=== PATIENT | male | born 1945 | race Caucasian/White ===

== ENCOUNTER 2018-07-04 14:36 | Day surgery (SDC) | payer MEDICARE, OTHER ==
[~2018-07-04] VITALS: Ht 180.3 cm; Wt 70.0 kg
[~2018-07-04 14:36] MED LIST: ALBU90OI INH; ASCO500; ASPI325 PO; ASPI325EC PO; BENZ100A PO; CARV3.125; CYAN500; FISH1000; FLUO10; FLUO10 PO; FOLI1; FOLI1 PO; Ferrous Sulfat325 M2 PO; LEVO750 PO; LISI20 PO; Lovastatin20 MG PO; METF500; MIRT15 PO; NIAC250ER; NIACIN500 MG PO; Nitrostat0.4 MG SL; OMEP10ER; Percocet 7.5-31 EACH PO; Prilosec Otc20 MG PO; Saw Palmetto160 MG PO; Saw Palmetto80 MG; VITAMIN B-121000 MCG PO; VITAMIN D35000 UNIT PO; ZESTORETIC 20-121 EA
== END 2018-07-04 17:02 | disposition home or self-care (01) ==
LOC: ORSCSDS 14:36
PROVIDERS: Ophthalmology
PROC: 08RJ3JZ Replacement of Right Lens with Synthetic Substitute, Percutaneous Approach (ICD-10-PCS; principal; 2018-07-04 16:30)
DX: H25.11 Age-related nuclear cataract, right eye (principal); I10 Essential (primary) hypertension; E11.9 Type 2 diabetes mellitus without complications; I25.2 Old myocardial infarction; Z79.82 Long term (current) use of aspirin; Z79.899 Other long term (current) drug therapy; F17.210 Nicotine dependence, cigarettes, uncomplicated
CPT/HCPCS: 82947; J2001; J2250; J3010; J7120; V2632

== ENCOUNTER 2018-09-12 10:41 | Day surgery (SDC) | payer MEDICARE, OTHER ==
[~2018-09-12] VITALS: Ht 215.9 cm; Wt 69.0 kg
--- NOTE | 2018-09-12 12:02 | NUR ---
09/12/18 1202 July Mann PT STATES PREVIOUS ALLERGY TO IBUPROFEN. PT UNAWARE OF REACTION. OK TO GIVE LIDOCAINE SLURRY PER DR OLIVARES
== END 2018-09-12 13:00 | disposition home or self-care (01) ==
LOC: ORSCSDS 10:41
PROVIDERS: Ophthalmology
PROC: 08RK3JZ Replacement of Left Lens with Synthetic Substitute, Percutaneous Approach (ICD-10-PCS; principal; 2018-09-12 12:30)
DX: H25.12 Age-related nuclear cataract, left eye (principal); I10 Essential (primary) hypertension; E11.9 Type 2 diabetes mellitus without complications; I25.2 Old myocardial infarction; Z79.82 Long term (current) use of aspirin; Z79.899 Other long term (current) drug therapy
CPT/HCPCS: 82947; J2250; J3010; V2632

== ENCOUNTER → 2019-04-06 | Outpatient (CLI) | payer MEDICARE, OTHER | END | disposition home or self-care (01) | LOC: LAB SHORT 13:51 → LAB EV 13:51 | DX: J02.9 Acute pharyngitis, unspecified (principal) | CPT/HCPCS: 87081 ==

== ENCOUNTER 2020-04-08 09:44 | Inpatient (IN) | payer MEDICARE, OTHER ==
[~2020-04-08] VITALS: Ht 177.8 cm; Wt 73.9 kg
[~2020-04-08 09:44] MED LIST changes: +FERSU300 PO; -Ferrous Sulfat325 M2 PO; +VITAMIN D31000 UNI1 PO; -VITAMIN D35000 UNIT PO
[2020-04-08] MEDS ORDERED: TIOT18 INH (10:12)
[2020-04-08] MEDS ORDERED: REMERON30 MG PO (10:13)
[2020-04-08 10:18] LABS: BASOPHILS ABSOLUTE AUTO 0.04 K/mm3 (0.00-0.23); BASOPHILS PERCENT AUTO 0 % (0-2); EOSINOPHILS PERCENT AUTO 0 % (0-6); Hematocrit 38.3 % (37.0-53.0); IMMATURE GRAN ABSOLUTE AUTO 0.12 K/mm3 (0.00-0.10); IMMATURE GRAN PERCENT AUTO 1 % (0-1); LYMPHOCYTES PERCENT AUTO 4 % (21-46); MONOCYTES ABSOLUTE AUTO 1.01 K/mm3 (0.16-1.47); MONOCYTES PERCENT AUTO 6 % (4-13); Mean Corpuscular HGB 32.3 pg (26.0-34.0); Mean Corpuscular HGB Conc 33.9 g/dL (31.5-36.5); Mean Corpuscular Volume 95 fL (80-100); Mean Platelet Volume 10.4 fL (9.1-12.4); NEUTROPHILS ABSOLUTE AUTO 16.58 K/mm3 (1.96-9.15); NEUTROPHILS PERCENT AUTO 90 % (41-73); Platelet Count 300 K/mm3 (150-400); RDW Coefficient Variation 13.5 % (11.7-14.2); RDW Standard Deviation 47.5 fL (35.1-46.3); Red Blood Cell Count 4.03 M/mm3 (4.30-5.90); White Blood Cell Count 18.45 K/mm3 (4.00-11.30)
[2020-04-08 10:37] LABS: Alanine Aminotransfer (ALT/SGP 26 U/L (12-78); Albumin, Blood 2.2 g/dL (3.4-5.0); Albumin/Globulin Ratio 0.4 (0.8-1.8); Alk Phos 80 U/L (50-136); Anion Gap 10 mmol/L (6-16); Aspartate Aminotrans (AST/SGOT 39 U/L (12-37); Bilirubin, Total 0.5 mg/dL (0.1-1.0); Blood Urea Nitrogen 20 mg/dL (8-24); Bun/Creatinine Ratio 24.6 (12.0-20.0); CO2, Blood 25 mmol/L (21-32); Calcium, Blood 9.7 mg/dL (8.5-10.1); Chloride, Blood 103 mmol/L (98-108); Creatinine, Blood 0.81 mg/dL (0.60-1.20); Globulin, Blood 4.9 g/dL (2.2-4.0); Glomerular Filtration Rate >60 (60-); Glucose, Blood 118 mg/dL (70-99); Potassium, Blood 3.5 mmol/L (3.5-5.5); Sodium, Blood 138 mmol/L (136-145); Total Protein, Blood 7.1 g/dL (6.4-8.2); Troponin I <0.015 ng/mL (0.000-0.040)
[2020-04-08] MEDS ORDERED: Saw Palmetto160 MG PO (16:29)
[2020-04-08] MEDS ORDERED: NIAC500 PO (16:30)
--- NOTE | 2020-04-08 19:28 | NUR ---
SHIFT SUMMARY: PATIENT ADMIT FROM ED THIS SHIFT. PT A&O; [place]; CALM AND COOPERATIVE WITH CARE. TELE IN PLACE; SR @ 72 PER ALLERGIST/PEDIATRIC PULMONOLOGIST. MEDICATED FOR CHRONIC BACK PAIN PER EMAR. LACTIC 1.5; NS @ 125. O2 @ 2L; ROOM AIR @ HOME. FLUIDS CONTINUING. REPORT GIVEN TO ONCOMING RN.
[2020-04-09 05:14] LABS: BASOPHILS ABSOLUTE AUTO 0.04 K/mm3 (0.00-0.23); BASOPHILS PERCENT AUTO 0 % (0-2); EOSINOPHILS ABSOLUTE AUTO 0.02 K/mm3 (0.00-0.68); EOSINOPHILS PERCENT AUTO 0 % (0-6); Hematocrit 38.4 % (37.0-53.0); Hemoglobin 12.6 g/dL (13.5-17.5); IMMATURE GRAN ABSOLUTE AUTO 0.13 K/mm3 (0.00-0.10); IMMATURE GRAN PERCENT AUTO 1 % (0-1); LYMPHOCYTES ABSOLUTE AUTO 2.23 K/mm3 (0.84-5.20); LYMPHOCYTES PERCENT AUTO 14 % (21-46); MONOCYTES ABSOLUTE AUTO 1.01 K/mm3 (0.16-1.47); MONOCYTES PERCENT AUTO 6 % (4-13); Mean Corpuscular HGB 31.7 pg (26.0-34.0); Mean Corpuscular HGB Conc 32.8 g/dL (31.5-36.5); Mean Corpuscular Volume 97 fL (80-100); Mean Platelet Volume 10.6 fL (9.1-12.4); NEUTROPHILS ABSOLUTE AUTO 12.82 K/mm3 (1.96-9.15); NEUTROPHILS PERCENT AUTO 79 % (41-73); Platelet Count 316 K/mm3 (150-400); RDW Coefficient Variation 13.9 % (11.7-14.2); RDW Standard Deviation 49.9 fL (35.1-46.3); Red Blood Cell Count 3.97 M/mm3 (4.30-5.90); White Blood Cell Count 16.25 K/mm3 (4.00-11.30)
--- NOTE | 2020-04-09 05:23 | NUR ---
SHIFT SUMMARY: 75 Y/O MALE RESTED COMFORTABLY ALL SHIFT; DENIES PAIN OR NAUSEA; WEARING O2 AT 2L/M PER NASAL CANNULA; COUGHING UP GREEN/YELLOW PHELGM AT TIMES WITH SLIGHT DYSPNEA NOTED SLIGHT MOVEMENT; PT VOIDED X 1 THIS SHIFT AFTER THIS NURSE ENCOURAGED PT TO AMBULATE INTO BATHROOM WHILE WEARING O2 (PT CONTINENT); ALERT AND ORIENTED X 4, BED LOW POSITION WITH CALL LIGHT AT SIDE.
[2020-04-09 05:38] LABS: Alanine Aminotransfer (ALT/SGP 30 U/L (12-78); Albumin, Blood 2.1 g/dL (3.4-5.0); Albumin/Globulin Ratio 0.4 (0.8-1.8); Alk Phos 75 U/L (50-136); Anion Gap 8 mmol/L (6-16); Aspartate Aminotrans (AST/SGOT 51 U/L (12-37); Bilirubin, Total 0.4 mg/dL (0.1-1.0); Blood Urea Nitrogen 15 mg/dL (8-24); Bun/Creatinine Ratio 17.9 (12.0-20.0); CO2, Blood 28 mmol/L (21-32); Calcium, Blood 9.1 mg/dL (8.5-10.1); Chloride, Blood 104 mmol/L (98-108); Creatinine, Blood 0.84 mg/dL (0.60-1.20); Globulin, Blood 4.8 g/dL (2.2-4.0); Glomerular Filtration Rate >60 (60-); Glucose, Blood 85 mg/dL (70-99); Potassium, Blood 2.9 mmol/L (3.5-5.5); Sodium, Blood 140 mmol/L (136-145); Total Protein, Blood 6.9 g/dL (6.4-8.2)
--- NOTE | 2020-04-09 19:27 | NUR ---
SHIFT SUMMARY: NO ACUTE CHANGES TO REPORT THIS SHIFT. PT A&O; [place]; CALM AND COOPERATIVE WITH CARE. MEDICATED FOR CHRONIC BACK PAIN PER EMAR. TELE IN PLACE; SR @ 72 PER PETROLOGY TEACHER. IV ABX & REHYDRATION . REPORT GIVEN TO ONCOMING RN.
--- NOTE | 2020-04-10 04:40 | NUR ---
SHIFT SUMMARY: 75 Y/O MALE RESTED COMFORTABLY ALL SHIFT; DENIES PAIN OR NAUSEA; ALERT AND ORIENTED X 4; TELEMETRY REFLECTS NSR PER ADRIAN--LOGGING RAFTER LABORER; PT WEARING O2 AT 2L/M PER NASAL CANNULA; LUNGS SOUNDS ARE DIMINISHED THROUGHOUT; BED LOW POSITION WITH CALL LIGHT AT SIDE.
[2020-04-10 05:14] LABS: BASOPHILS ABSOLUTE AUTO 0.03 K/mm3 (0.00-0.23); BASOPHILS PERCENT AUTO 0 % (0-2); EOSINOPHILS ABSOLUTE AUTO 0.04 K/mm3 (0.00-0.68); EOSINOPHILS PERCENT AUTO 0 % (0-6); Hematocrit 32.1 % (37.0-53.0); Hemoglobin 10.8 g/dL (13.5-17.5); IMMATURE GRAN ABSOLUTE AUTO 0.09 K/mm3 (0.00-0.10); IMMATURE GRAN PERCENT AUTO 1 % (0-1); LYMPHOCYTES ABSOLUTE AUTO 1.06 K/mm3 (0.84-5.20); LYMPHOCYTES PERCENT AUTO 8 % (21-46); MONOCYTES PERCENT AUTO 5 % (4-13); Mean Corpuscular HGB Conc 33.6 g/dL (31.5-36.5); Mean Corpuscular Volume 95 fL (80-100); Mean Platelet Volume 10.3 fL (9.1-12.4); NEUTROPHILS ABSOLUTE AUTO 11.57 K/mm3 (1.96-9.15); NEUTROPHILS PERCENT AUTO 86 % (41-73); Platelet Count 298 K/mm3 (150-400); RDW Coefficient Variation 13.9 % (11.7-14.2); RDW Standard Deviation 48.4 fL (35.1-46.3); Red Blood Cell Count 3.37 M/mm3 (4.30-5.90); White Blood Cell Count 13.49 K/mm3 (4.00-11.30)
[2020-04-10 05:35] LABS: Anion Gap 8 mmol/L (6-16); Blood Urea Nitrogen 10 mg/dL (8-24); Bun/Creatinine Ratio 14.8 (12.0-20.0); CO2, Blood 27 mmol/L (21-32); Calcium, Blood 8.5 mg/dL (8.5-10.1); Chloride, Blood 105 mmol/L (98-108); Creatinine, Blood 0.68 mg/dL (0.60-1.20); Glomerular Filtration Rate >60 (60-); Glucose, Blood 92 mg/dL (70-99); Potassium, Blood 2.8 mmol/L (3.5-5.5); Sodium, Blood 140 mmol/L (136-145)
--- NOTE | 2020-04-10 17:39 | NUR ---
SHIFT SUMMARY NO ACUTE CHANGES T/O SHIFT, PT A&Ox4. K+ WAS 2.8 WHEN I STARTED MY SHIFT, CALLED AND HE PLACED AN ORDER FOR ORAL POTASSIUM TO BE STARTED. SPUTUM SAMPLE WAS COLLECTED AND SENT TO LAB. PT HAS BEEN CALM AND COOPERATIVE WITH CARE. PT IS CURRENTLY SITTING UP IN BED EATING DINNER. POSSIBLE DC TOMORROW.
[2020-04-10 18:17] LABS: Anion Gap 6 mmol/L (6-16); Blood Urea Nitrogen 8 mg/dL (8-24); CO2, Blood 29 mmol/L (21-32); Calcium, Blood 8.4 mg/dL (8.5-10.1); Chloride, Blood 108 mmol/L (98-108); Creatinine, Blood 0.73 mg/dL (0.60-1.20); Glomerular Filtration Rate >60 (60-); Glucose, Blood 96 mg/dL (70-99); Potassium, Blood 3.4 mmol/L (3.5-5.5); Sodium, Blood 143 mmol/L (136-145)
--- NOTE | 2020-04-11 04:07 | NUR ---
SHIFT SUMMARY: 75 Y/O MALE RESTED COMFORTABLY ALL SHIFT; C/O BACK PAIN RATED 8/10 AND MEDICATED WITH PERCOCET X 1 WITH GOOD RELIEF FELT; WEARING O2 AT 2L/M PER NASAL CANNULA; PT COUGHING UP YELLOW PHELGM AT TIMES WHILE SITTING HIGH FOWLERS FOR COMFORT; DENIES NAUSEA THIS SHIFT; BED LOW POSITION WITH CALL LIGHT AT SIDE; TELEMETRY REFLECTS NSR WITH PVC PER ADRIAN--MANAGER UROLOGY.
[2020-04-11 05:07] LABS: BASOPHILS ABSOLUTE AUTO 0.04 K/mm3 (0.00-0.23); BASOPHILS PERCENT AUTO 0 % (0-2); EOSINOPHILS ABSOLUTE AUTO 0.09 K/mm3 (0.00-0.68); EOSINOPHILS PERCENT AUTO 1 % (0-6); Hematocrit 30.7 % (37.0-53.0); IMMATURE GRAN ABSOLUTE AUTO 0.08 K/mm3 (0.00-0.10); IMMATURE GRAN PERCENT AUTO 1 % (0-1); LYMPHOCYTES ABSOLUTE AUTO 1.15 K/mm3 (0.84-5.20); LYMPHOCYTES PERCENT AUTO 10 % (21-46); MONOCYTES ABSOLUTE AUTO 0.71 K/mm3 (0.16-1.47); MONOCYTES PERCENT AUTO 6 % (4-13); Mean Corpuscular HGB 31.5 pg (26.0-34.0); Mean Corpuscular HGB Conc 32.6 g/dL (31.5-36.5); Mean Corpuscular Volume 97 fL (80-100); Mean Platelet Volume 10.2 fL (9.1-12.4); NEUTROPHILS ABSOLUTE AUTO 9.23 K/mm3 (1.96-9.15); NEUTROPHILS PERCENT AUTO 82 % (41-73); Platelet Count 310 K/mm3 (150-400); RDW Coefficient Variation 13.9 % (11.7-14.2); RDW Standard Deviation 49.5 fL (35.1-46.3); Red Blood Cell Count 3.17 M/mm3 (4.30-5.90)
[2020-04-11 05:40] LABS: Anion Gap 6 mmol/L (6-16); Blood Urea Nitrogen 7 mg/dL (8-24); Bun/Creatinine Ratio 10.4 (12.0-20.0); CO2, Blood 28 mmol/L (21-32); Calcium, Blood 7.9 mg/dL (8.5-10.1); Chloride, Blood 107 mmol/L (98-108); Creatinine, Blood 0.68 mg/dL (0.60-1.20); Glomerular Filtration Rate >60 (60-); Glucose, Blood 83 mg/dL (70-99); Sodium, Blood 141 mmol/L (136-145)
--- NOTE | 2020-04-11 10:40 | NUR ---
TRIED TITRATING PT OFF OF O2 BECUASE HIS BASELINE IN 2 L/MIN O2 VIA NC AT HOME. PT DROPPED TO 85% W/O O2 AND SUSTAINED THERE. PLACED PT BACK ON 1.5 L/MIN 02 AND PT STAYED AROUND 92%. INFORMED DR BENNETT AND SHE STATED SHE WILL ORDERED A HOME O2 EVAL SINCE PT IS LIKELY TO BE DISCHARGED TODAY.
[2020-04-11] MEDS ORDERED: AMOCLA875 PO (12:45)
[2020-04-11] MEDS ORDERED: [UNRECOGNIZED DRUG - OTHER] PO (12:45)
[2020-04-11 12:53] LABS: Anion Gap 7 mmol/L (6-16); Blood Urea Nitrogen 6 mg/dL (8-24); Bun/Creatinine Ratio 8.7 (12.0-20.0); CO2, Blood 27 mmol/L (21-32); Calcium, Blood 8.2 mg/dL (8.5-10.1); Chloride, Blood 109 mmol/L (98-108); Creatinine, Blood 0.69 mg/dL (0.60-1.20); Glomerular Filtration Rate >60 (60-); Glucose, Blood 110 mg/dL (70-99); Potassium, Blood 3.6 mmol/L (3.5-5.5); Sodium, Blood 143 mmol/L (136-145)
--- NOTE | 2020-04-11 15:22 | NUR ---
PT DISCHARGED AT APPROX 1510 VIA WHEELCHAIR BY DAVIN HEAD RN. BLANCA CAME BY AND PROVIDED PT WITH PORTABLE OXYGEN TANK PER MD ORDER. DISCHARGE INSTRUCTIONS WERE DISCUSSED WITH PT. PT VERBALIZED UNDERSTANDING AND STATED HE HAD NO QUESTIONS OR CONCERNS. IV WAS REMOVED AND SITE APPEARED WITHIN NORMAL LIMITS, TELE WAS ALSO REMOVED AND LOGGING SHOVEL OPERATOR WAS NOTIFIED.
== END 2020-04-11 15:11 | disposition home or self-care (01) | DRG 871 ==
LOC: ER 09:44 → MEDS 13:48
PROVIDERS: Emergency Medicine; Family Medicine; Nurse Practitioner Acute Care; Student in an Organized Health Care Education/Training Program; ADMIT Internal Medicine
DX: A41.9 Sepsis, unspecified organism (principal); J96.01 Acute respiratory failure with hypoxia; J18.9 Pneumonia, unspecified organism; J44.0 Chronic obstructive pulmonary disease with (acute) lower respiratory infection; Z79.82 Long term (current) use of aspirin; I25.10 Atherosclerotic heart disease of native coronary artery without angina pectoris; Z95.5 Presence of coronary angioplasty implant and graft; Z90.2 Acquired absence of lung [part of]; Z87.891 Personal history of nicotine dependence; Z20.828 Contact with and (suspected) exposure to other viral communicable diseases; F32.9 Major depressive disorder, single episode, unspecified; D50.9 Iron deficiency anemia, unspecified; K21.9 Gastro-esophageal reflux disease without esophagitis; E87.6 Hypokalemia; M54.9 Dorsalgia, unspecified; G89.29 Other chronic pain; Z99.81 Dependence on supplemental oxygen
CPT/HCPCS: 36415; 71045; 80048; 80053; 83605; 83735; 83880; 84484; 85025; 87040; 87070; 87077; 87147; 87186; 87205; 93005; 93010; 94640; 94760; 94761; 96365; 96367; 96375; 99285-25; A9270; A9270-GY; J0456; J0696; J0780; J1650; J2405; J7030; J7050; J7060; U0004

== ENCOUNTER → 2020-11-19 | Outpatient (CLI) | payer MEDICARE, OTHER ==
[~2020-11-19] MED LIST changes: +AMOCLA875 PO; +NIAC500 PO; +REMERON30 MG PO; +TIOT18 INH; +[UNRECOGNIZED DRUG - OTHER] PO
[2020-11-19 14:45] LABS: BASOPHILS ABSOLUTE AUTO 0.04 K/mm3 (0.00-0.23); BASOPHILS PERCENT AUTO 1 % (0-2); EOSINOPHILS ABSOLUTE AUTO 0.22 K/mm3 (0.00-0.68); EOSINOPHILS PERCENT AUTO 3 % (0-6); Hematocrit 35.3 % (37.0-53.0); Hemoglobin 10.5 g/dL (13.5-17.5); IMMATURE GRAN ABSOLUTE AUTO 0.03 K/mm3 (0.00-0.10); IMMATURE GRAN PERCENT AUTO 0 % (0-1); LYMPHOCYTES ABSOLUTE AUTO 1.87 K/mm3 (0.84-5.20); LYMPHOCYTES PERCENT AUTO 25 % (21-46); MONOCYTES PERCENT AUTO 10 % (4-13); Mean Corpuscular HGB 25.2 pg (26.0-34.0); Mean Corpuscular HGB Conc 29.7 g/dL (31.5-36.5); Mean Corpuscular Volume 85 fL (80-100); Mean Platelet Volume 10.8 fL (9.1-12.4); NEUTROPHILS ABSOLUTE AUTO 4.52 K/mm3 (1.96-9.15); NEUTROPHILS PERCENT AUTO 61 % (41-73); Platelet Count 237 K/mm3 (150-400); RDW Coefficient Variation 16.6 % (11.7-14.2); Red Blood Cell Count 4.17 M/mm3 (4.30-5.90); White Blood Cell Count 7.38 K/mm3 (4.00-11.30)
[2020-11-19 15:02] LABS: Albumin, Blood 3.2 g/dL (3.4-5.0); Albumin/Globulin Ratio 0.7 (0.8-1.8); Bilirubin, Total 0.2 mg/dL (0.1-1.0); Bun/Creatinine Ratio 9.6 (12.0-20.0); Calcium, Blood 9.1 mg/dL (8.5-10.1); Creatinine, Blood 1.25 mg/dL (0.60-1.20); Globulin, Blood 4.5 g/dL (2.2-4.0); Potassium, Blood 3.5 mmol/L (3.5-5.5); Total Protein, Blood 7.7 g/dL (6.4-8.2)
== END | disposition home or self-care (01) ==
LOC: LAB SHORT 09:45 → LAB 09:45
PROVIDERS: Family Medicine
DX: C15.9 Malignant neoplasm of esophagus, unspecified (principal); E78.5 Hyperlipidemia, unspecified; I10 Essential (primary) hypertension; G89.4 Chronic pain syndrome
CPT/HCPCS: 80053; 85025

== ENCOUNTER → 2021-10-04 | Outpatient (CLI) | payer MEDICARE, OTHER ==
[2021-10-04 18:57] LABS: BASOPHILS ABSOLUTE AUTO 0.07 K/mm3 (0.00-0.23); BASOPHILS PERCENT AUTO 1 % (0-2); EOSINOPHILS PERCENT AUTO 2 % (0-6); Hematocrit 40.8 % (37.0-53.0); Hemoglobin 12.3 g/dL (13.5-17.5); IMMATURE GRAN ABSOLUTE AUTO 0.03 K/mm3 (0.00-0.10); IMMATURE GRAN PERCENT AUTO 0 % (0-1); LYMPHOCYTES ABSOLUTE AUTO 1.96 K/mm3 (0.84-5.20); LYMPHOCYTES PERCENT AUTO 20 % (21-46); MONOCYTES ABSOLUTE AUTO 0.69 K/mm3 (0.16-1.47); MONOCYTES PERCENT AUTO 7 % (4-13); Mean Corpuscular HGB 26.6 pg (26.0-34.0); Mean Corpuscular HGB Conc 30.1 g/dL (31.5-36.5); Mean Corpuscular Volume 88 fL (80-100); Mean Platelet Volume 10.8 fL (9.1-12.4); NEUTROPHILS ABSOLUTE AUTO 6.74 K/mm3 (1.96-9.15); NEUTROPHILS PERCENT AUTO 70 % (41-73); Platelet Count 238 K/mm3 (150-400); RDW Coefficient Variation 16.8 % (11.7-14.2); RDW Standard Deviation 53.7 fL (35.1-46.3); Red Blood Cell Count 4.63 M/mm3 (4.30-5.90); White Blood Cell Count 9.69 K/mm3 (4.00-11.30)
== END | disposition home or self-care (01) ==
LOC: LAB SHORT 16:00
PROVIDERS: Family Medicine
DX: R06.00 Dyspnea, unspecified (principal)
CPT/HCPCS: 84145; 85025

== ENCOUNTER 2021-12-01 13:03 | Day surgery (SDC) | payer MEDICARE, OTHER ==
[~2021-12-01] VITALS: Ht 177.8 cm; Wt 79.9 kg
== END 2021-12-01 16:06 | disposition home or self-care (01) ==
LOC: ORSCSDS 13:03
PROVIDERS: Student in an Organized Health Care Education/Training Program
PROC: 0DB78ZX Excision of Stomach, Pylorus, Via Natural or Artificial Opening Endoscopic, Diagnostic (ICD-10-PCS; principal; 2021-12-01 15:00)
PROC: 0DB58ZX Excision of Esophagus, Via Natural or Artificial Opening Endoscopic, Diagnostic (ICD-10-PCS; principal; 2021-12-01 15:00)
DX: R13.14 Dysphagia, pharyngoesophageal phase (principal); K21.9 Gastro-esophageal reflux disease without esophagitis; Z85.118 Personal history of other malignant neoplasm of bronchus and lung; Z85.01 Personal history of malignant neoplasm of esophagus; Z99.81 Dependence on supplemental oxygen; Z79.899 Other long term (current) drug therapy; Z79.82 Long term (current) use of aspirin; I10 Essential (primary) hypertension; I25.2 Old myocardial infarction
CPT/HCPCS: 88305; 88312; 88342; A9270; J0171; J0461; J2370; J2405; J2704; J7120

== ENCOUNTER → 2022-01-24 | Outpatient (CLI) | payer MEDICARE, OTHER | LOC: LAB SHORT 17:05 | DX: R53.83 Other fatigue (principal) ==

== ENCOUNTER → 2022-02-02 | Outpatient (CLI) | payer MEDICARE, OTHER ==
[~2022-02-02] MED LIST changes: +K-Dur10 MEQ PO; +NEURONTIN300 MG PO; +NITROGLYCERIN0.4 M3 SL
[2022-02-02 18:50] LABS: BASOPHILS ABSOLUTE AUTO 0.04 K/mm3 (0.00-0.23); BASOPHILS PERCENT AUTO 1 % (0-2); EOSINOPHILS ABSOLUTE AUTO 0.06 K/mm3 (0.00-0.68); EOSINOPHILS PERCENT AUTO 1 % (0-6); Hematocrit 28.1 % (37.0-53.0); Hemoglobin 8.3 g/dL (13.5-17.5); IMMATURE GRAN ABSOLUTE AUTO 0.01 K/mm3 (0.00-0.10); IMMATURE GRAN PERCENT AUTO 0 % (0-1); LYMPHOCYTES ABSOLUTE AUTO 1.22 K/mm3 (0.84-5.20); LYMPHOCYTES PERCENT AUTO 18 % (21-46); MONOCYTES ABSOLUTE AUTO 0.44 K/mm3 (0.16-1.47); MONOCYTES PERCENT AUTO 7 % (4-13); Mean Corpuscular HGB 23.9 pg (26.0-34.0); Mean Corpuscular HGB Conc 29.5 g/dL (31.5-36.5); Mean Corpuscular Volume 81 fL (80-100); Mean Platelet Volume 11.1 fL (9.1-12.4); NEUTROPHILS ABSOLUTE AUTO 4.85 K/mm3 (1.96-9.15); NEUTROPHILS PERCENT AUTO 73 % (41-73); Platelet Count 261 K/mm3 (150-400); RDW Coefficient Variation 18.9 % (11.7-14.2); RDW Standard Deviation 54.6 fL (35.1-46.3); Red Blood Cell Count 3.48 M/mm3 (4.30-5.90); White Blood Cell Count 6.62 K/mm3 (4.00-11.30)
== END | disposition home or self-care (01) ==
LOC: LAB SHORT 15:35
PROVIDERS: Family Medicine
DX: D64.9 Anemia, unspecified (principal)
CPT/HCPCS: 85025

== ENCOUNTER 2022-03-06 14:32 | Inpatient (IN) | payer MEDICARE, OTHER ==
[~2022-03-06] VITALS: Ht 177.8 cm; Wt 72.3 kg
[2022-03-06 14:53] LABS: Base Excess Venous 5.7 mmol/L; Bicarbonate Venous 27.9 mmol/L (24.0-30.0); PCO2 Venous 60.2 mmHg (38-42); pH Blood Venous 7.33 (7.34-7.37)
[2022-03-06 15:00] LABS: BASOPHILS ABSOLUTE AUTO 0.04 K/mm3 (0.00-0.23); BASOPHILS PERCENT AUTO 0 % (0-2); EOSINOPHILS PERCENT AUTO 0 % (0-6); Hematocrit 38.3 % (37.0-53.0); Hemoglobin 11.1 g/dL (13.5-17.5); IMMATURE GRAN ABSOLUTE AUTO 0.04 K/mm3 (0.00-0.10); IMMATURE GRAN PERCENT AUTO 0 % (0-1); LYMPHOCYTES ABSOLUTE AUTO 0.57 K/mm3 (0.84-5.20); LYMPHOCYTES PERCENT AUTO 4 % (21-46); MONOCYTES ABSOLUTE AUTO 1.04 K/mm3 (0.16-1.47); MONOCYTES PERCENT AUTO 7 % (4-13); Mean Corpuscular HGB 25.6 pg (26.0-34.0); Mean Corpuscular Volume 89 fL (80-100); Mean Platelet Volume 10.2 fL (9.1-12.4); NEUTROPHILS ABSOLUTE AUTO 12.46 K/mm3 (1.96-9.15); NEUTROPHILS PERCENT AUTO 88 % (41-73); Platelet Count 272 K/mm3 (150-400); RDW Coefficient Variation 26.8 % (11.7-14.2); Red Blood Cell Count 4.33 M/mm3 (4.30-5.90); White Blood Cell Count 14.15 K/mm3 (4.00-11.30)
[2022-03-06 15:24] LABS: Albumin, Blood 2.9 g/dL (3.4-5.0); Albumin/Globulin Ratio 0.7 (0.8-1.8); Bilirubin, Total 0.3 mg/dL (0.1-1.0); Bun/Creatinine Ratio 16.7 (12.0-20.0); Calcium, Blood 9.1 mg/dL (8.5-10.1); Creatinine, Blood 0.96 mg/dL (0.60-1.20); Globulin, Blood 4.2 g/dL (2.2-4.0); Total Protein, Blood 7.1 g/dL (6.4-8.2)
--- NOTE | 2022-03-06 18:54 | NUR ---
ADMIT PT ARRIVED TO ICU 5 VIA BED AT 1835. PT IS AWAKE, ALERT, AND ORIENTED. PT ANSWERS SIMPLE QUESTIONS APPROPRIATELY AND FOLLOWS DIRECTIONS. PT COMPLAINS OF BACK PAIN AT THIS TIME. DENIES SOB. PT ON 4L O2 NC. PT WITH VERY WET LUNG SOUNDS. IV'S IN PLACE WITH KCL AND AZITHROMYCIN INFUSING. ATTENDS IN PLACE. PT WITH SOME REDDNESS NOTED TO COCCYX. WILL CONTINUE TO MONITOR AND REPORT OFF TO ONCOMING RN.
[2022-03-06] MEDS ORDERED: ALBU8HFA2 INH (19:25)
--- NOTE | 2022-03-06 20:47 | NUR ---
ASSUMED CARE. AOX3, ABLE TO MAKE NEEDS KNOWN. DENIES PAIN OR DISCOMFORT. LS RHONCI T/O, COUGH MOIST, PRODUCTIVE WITH THICK MARCIAL SECRETIONS. ON 3L NC WITH SATS >95%. DENIES CHEST PAIN. SINUS ON MONITOR RATE IN THE 80['S. CRITICAL HIGH TROPONIN OF 1206, CALLED TO DR. CHRISTIANSON, NO NEW ORDERS. BP STABLE. PALE, WARM TO TOUCH, MILD REDNESS TO COCCYX. IS ABLE TO REPOSITION SELF. ADMIT COMPLETED. NEUROPATHY TO BLE FROM PREVIOUS BACK SURGERIES. HUNG ABX, POTASSIUM INFUSING. CALL LIGHT GIVEN.
--- NOTE | 2022-03-06 21:38 | NUR ---
CALLED, UPDATE GIVEN. ASKED TO BE CALLED WITH ANY CHANGES.
[2022-03-07 04:17] LABS: BASOPHILS ABSOLUTE AUTO 0.02 K/mm3 (0.00-0.23); BASOPHILS PERCENT AUTO 0 % (0-2); EOSINOPHILS PERCENT AUTO 0 % (0-6); Hematocrit 32.3 % (37.0-53.0); Hemoglobin 9.4 g/dL (13.5-17.5); IMMATURE GRAN ABSOLUTE AUTO 0.03 K/mm3 (0.00-0.10); IMMATURE GRAN PERCENT AUTO 0 % (0-1); LYMPHOCYTES ABSOLUTE AUTO 0.69 K/mm3 (0.84-5.20); LYMPHOCYTES PERCENT AUTO 5 % (21-46); MONOCYTES PERCENT AUTO 3 % (4-13); Mean Corpuscular HGB 25.4 pg (26.0-34.0); Mean Corpuscular HGB Conc 29.1 g/dL (31.5-36.5); Mean Corpuscular Volume 87 fL (80-100); NEUTROPHILS ABSOLUTE AUTO 12.28 K/mm3 (1.96-9.15); NEUTROPHILS PERCENT AUTO 92 % (41-73); Platelet Count 209 K/mm3 (150-400); RDW Coefficient Variation 26.9 % (11.7-14.2); RDW Standard Deviation 81.8 fL (35.1-46.3); White Blood Cell Count 13.42 K/mm3 (4.00-11.30)
--- NOTE | 2022-03-07 04:50 | NUR ---
PT CONVERTED INTO AFIB WITH RATE IN THE 110'S, C/O DIFFICULTY BREATHING AND NOT ABLE TO CATCH HIS BREATH. RESP INCREASED INTO THE 40'S, BP ELEVATED. HE BECAME DIAPHORTIC. DR. CALL CALLED UPDATE GIVEN. NEW ORDERS OBTAINED. RT CALLED, BREATHING TX STARTED.
[2022-03-07 05:13] LABS: Albumin, Blood 2.5 g/dL (3.4-5.0); Albumin/Globulin Ratio 0.7 (0.8-1.8); Bilirubin, Total 0.4 mg/dL (0.1-1.0); Bun/Creatinine Ratio 19.9 (12.0-20.0); Calcium, Blood 8.2 mg/dL (8.5-10.1); Creatinine, Blood 0.9 mg/dL (0.60-1.20); Globulin, Blood 3.8 g/dL (2.2-4.0); Potassium, Blood 3.1 mmol/L (3.5-5.5); Total Protein, Blood 6.3 g/dL (6.4-8.2)
[2022-03-07 05:27] LABS: Base Excess Venous 6.3 mmol/L; Bicarbonate Venous 28.6 mmol/L (24.0-30.0); PCO2 Venous 59.5 mmHg (38-42); PO2 Venous 58.9 mmHg (38-42); pH Blood Venous 7.34 (7.34-7.37)
--- NOTE | 2022-03-07 07:08 | NUR ---
SHIFT SUMMARY: PT REMAINED ON 4L NC UP TO AROUND 0445 THIS AM WHEN HE WENT INTO RESPIRTORY DISTRESS WITH RESP IN THE 40'S, SATS DROPPING TO 89%, LS WITH AUDIABLE RHONCI, SPUTUM THICK MARCIAL COLOR TO WHERE HE WAS UNABLE TO GET SECRETIONS OUT. PT WAS PLACED ON BIPAP 18/8 WITH FIO2 40%, ATIVAN 0.5MG WAS GIVEN FOR AGGITATION AND ANXIETY WITH BIPAP WHICH DID NOT HELP, THEREFORE PRECEDEX 0.2MCQ WAS STARTED. SPUTUM SENT FOR CULTURE, RESP ARE NOW IN THE 20'S, SATS 96% ON BIPAP 18/8/40%. AROUND 5 HE ALSO WENT INTO AFIB, PRIOR TO THAT HE WAS SINUS WITH PVC'S, THEN HE WENT INTO SINUS TACH, AND CONTINUED TO HAVE SEVERAL RYTHMIA CHANGES. TROPONIN WENT FROM 1206 AT START OF SHIFT TO 2487, HE DENIED CHEST PAIN. CARDIO CONSULT WAS CALLED IN THIS AM. K+ LOW THIS AM KCL REPLACEMENT INFUSING. EDEMA PRESENT IN THE BUE AND BLE. BLOOD PRESSURE HAS RETURNED BACK TO NORMAL AT 110/74. XRAY, EKG WAS COMPLETED, MINIMAL CHANGED NOTED BY DR. CALL. NEW IV WAS PLACED IN THE RIGHT FA RIGHT HAND IV WAS PULLED OUT. REPORT GIVEN TO SOHAN.
--- NOTE | 2022-03-07 09:06 | NUR ---
Taken off bipap to see if he could tolerate for a swallow evaluation; he began the swallow eval, became nauseated after taking small amounts of water, applesauce and nan cracker and vomited. Zofran given. HR 120 and spo2 dropped from 98 to 93%. pt states that he needs to get back on the bipap. RR 33, grunting. put back on bipap after nausea/vomiting had stopped. Pt is wearing bipap now, tolerating it, and states that he isno longer nauseated. HR 115, RR 24, and spo2 improved to 97%.
[2022-03-07 09:08] LABS: Anti-Xa UFH, PHA Monitoring <0.10 IU/mL; International Normalized Ratio 1.15
--- NOTE | 2022-03-07 10:45 | NUR ---
HEPARIN gtt stopped per Dr. Richardson. Pt was able to take oral medications with sips of water, sitting up. He is tolerating being off the bipap, on nasal cannula 4 l/min delivery, for just a few minutes at a time for conversations with physicians, sips of water, etc. Pt states that he is not nauseated. Pt states that he takes his meds whole with water at home, without difficulty. STates that he told the speech therapist that he takes them with applesauce "just so that she would leave me alone." I explained to the patient that accurate and true information is important for staff, for assessment of his ability and in order to deliver appropriate care.
[2022-03-07 11:02] LABS: Influenza A, PCR NEGATIVE (NEGATIVE); Influenza B, PCR NEGATIVE (NEGATIVE); Resp Syncytial Virus, PCR NEGATIVE (NEGATIVE); SARS-Cov-2 (COVID-19) PCR, MMC NEGATIVE (NEGATIVE)
--- NOTE | 2022-03-07 12:40 | NUR ---
Pt has been tolerating off the bipap. Still has expiratory crackles and wheezes, but much improved since this morning. No grunting, and while on nasal cannula at 4 l/min his work of breathing is much easier, RR 20-21 at rest, spo2 95-6%. Taken to labels molder at this time for angiogram.
--- NOTE | 2022-03-07 14:25 | NUR ---
received call from Dr. Richardson requesting assistance for transfer of patient. [facility], [place] no beds, [facility] beds, [facility] placed on list face sheet faxed.
--- NOTE | 2022-03-07 17:41 | NUR ---
PT UP IN BED VISITING WITH FAMILY. NO SIGNS OF RESPIRATORY DISTRESS, PT DENIES SOB. CURRENTLY ON 3 L HIGH FLOW NC, O2 SATS 96%. PT DID NOT WANT DINNER, REPORTS HE DOES NOT LIKE TO EAT WHAT WAS ON THE TRY. SNACK OFFERED AND PT ACCEPTED. HEPARIN GTT STILL INFUSING PER EMAR.
--- NOTE | 2022-03-07 18:34 | NUR ---
TR BAND FULLY RECOVERED, TR BAND REMOVED AT 1730. NO SWELLING, DISCOLORATION, OR TENDERNESS. PENIES DENIES PAIN, NUMBNESS OR TINGLING, GOOD CAP REFILL. SITE CLEANED AND TEGADERM PLACED. ARM BOARD IN PLACE.
[2022-03-07 20:54] LABS: Anti-Xa UFH, PHA Monitoring 0.37 IU/mL
[2022-03-08 04:28] LABS: Hemoglobin 8.6 g/dL (13.5-17.5); Mean Corpuscular HGB Conc 29.7 g/dL (31.5-36.5); Mean Corpuscular Volume 88 fL (80-100); Mean Platelet Volume 10.5 fL (9.1-12.4); Platelet Count 184 K/mm3 (150-400); RDW Coefficient Variation 27.3 % (11.7-14.2); RDW Standard Deviation 83.2 fL (35.1-46.3); Red Blood Cell Count 3.31 M/mm3 (4.30-5.90); White Blood Cell Count 10.66 K/mm3 (4.00-11.30)
[2022-03-08 04:33] LABS: Anion Gap 4 mmol/L (6-16); Blood Urea Nitrogen 17 mg/dL (8-24); Bun/Creatinine Ratio 20.7 (12.0-20.0); CHOL/HDL RATIO 2.8; CO2, Blood 36 mmol/L (21-32); Chloride, Blood 101 mmol/L (98-108); Cholesterol 102 mg/dL (50-200); Creatinine, Blood 0.82 mg/dL (0.60-1.20); Glomerular Filtration Rate 90 (60-); Glucose, Blood 112 mg/dL (70-99); HDL Cholesterol 36 mg/dL (>39); LDL/HDL RATIO 1.3; Low Density Lipoprotein Chol 46 mg/dL (0-110); Potassium, Blood 3.2 mmol/L (3.5-5.5); Sodium, Blood 141 mmol/L (136-145); Triglycerides 102 mg/dL (30-160); Very Low Density Lipoprot Chol 20 mg/dL (6-32)
--- NOTE | 2022-03-08 06:26 | NUR ---
END OF SHIFT SUMMARY NO ACUTE CHANGES OVERNIGHT. PT POTASSIUM 3.[address]. WAITING ON BED AT [facility] THEY DID CALL FOR UPDATE ON PT. PT WORE BIPAP FOR ABOUT 3 HRS LAST NIGHT. NOW BACK ON 3 LITERS NC. PT PAIN RELIEVED WITH IV DILAUDID HE HAS CHRONIC LEG PAIN FOR WHICH HE TAKES PO NORCO AT HOME. IT IS IN HIS HOME MEDICATION LIST. WILL GIVE BEDSIDE REPORT TO ONCOMING RN.
--- NOTE | 2022-03-08 17:57 | NUR ---
SHIFT SUMMARY PT HAS BEEN RESTING IN ROOM TODAY. PT GOT UP TO THE RESTROOM BY STAND-BY ASSIST THIS MORNING FOR A BOWEL MOVEMENT. PT DESATURATED TO 85% WHEN RETURNING TO BED, NC WAS INCREASED TO 5L AND PT RECOVERED TO >90% WITHIN A FEW MINUTES. PT HAS SINCE BEEN STABLE ON 3L NC (>95%). PT HAS DENIED ALL C/O CHEST PAIN/PRESSURE. CHRONIC PAIN TO THE BILATERAL HIPS AND LEGS HAS BEEN POORLY MANAGED WITH REPOSITIONING AND MEDICATION. PROVIDER HAS MADE CHANGES TO MEDICATIONS. VITAL SIGNS STABLE, NO CHANGES IN PT CONDITION, AWAITING ON PLACEMENT FOR TRANSFER TO HIGHER LEVEL OF CARE FACILITY.
[2022-03-09 05:37] LABS: Hematocrit 29.8 % (37.0-53.0); Hemoglobin 8.9 g/dL (13.5-17.5); Mean Corpuscular HGB 26.3 pg (26.0-34.0); Mean Corpuscular HGB Conc 29.9 g/dL (31.5-36.5); Mean Corpuscular Volume 88 fL (80-100); Mean Platelet Volume 10.5 fL (9.1-12.4); Platelet Count 178 K/mm3 (150-400); RDW Coefficient Variation 26.3 % (11.7-14.2); RDW Standard Deviation 80.8 fL (35.1-46.3); Red Blood Cell Count 3.39 M/mm3 (4.30-5.90); White Blood Cell Count 7.24 K/mm3 (4.00-11.30)
[2022-03-09 05:58] LABS: Bun/Creatinine Ratio 15.3 (12.0-20.0); Calcium, Blood 8.5 mg/dL (8.5-10.1); Creatinine, Blood 0.91 mg/dL (0.60-1.20); Potassium, Blood 3.3 mmol/L (3.5-5.5)
--- NOTE | 2022-03-09 07:27 | NUR ---
PT RESTS QUIETLY THROUGHOUT SHIFT, REPORTS THAT HE SLEPT WELL. DENIES CP/PRESSURE THROUGHOUT NOC. INITIALLY SINUS RHYTHM TO SINUS BRADYCARDIA WITH SLEEP, OCCASIONAL PVCS, RATES DOWN TO HIGH 40S WERE NOTED, PRESSURES MAINTAINED. LUNGS CONTINUE COARSE, PT DID HAVE COUGH PRODUCTIVE OF SPUTUM THIS AM HOWEVER WAS NOT VISUALIZED, SATS IMPROVED TO HIGH 90S FOLLOWING THIS ON PT'S HOME FLOW RATE OF 3 L/MIN VIA NASAL CANNULA, HE DENIES SOB/DYSPNEA BEYOND BASELINE THROUGHOUT NOC. GOOD URINE OUTPUT THIS SHIFT. RIGHT RADIAL ACCESS SITE CONTINUES STABLE THROUGHOUT NOC.
--- NOTE | 2022-03-09 07:37 | NUR ---
ASSUME CARE: I have assume care of this patient.
--- NOTE | 2022-03-09 08:03 | NUR ---
PROVIDER PHONE CALL: Dr Calhoun called and notified of pt's NPO status until barium swallow can be performed. RN requested IV analgesic as pt is complaining of pain in the BLE.
--- NOTE | 2022-03-09 10:36 | NUR ---
BARIUM SWALLOW: Pt to radiology via hospital bed by transport pilot with portable monitor and IV heparin infusing.
--- NOTE | 2022-03-09 14:44 | NUR ---
SHIFT/TRANSFER SUMMARY: pt transferred to PCU 1 via bed by EMILY. pt's son was notified of transfer while visiting. NEURO: a/o x 4; GURROLA. c/o chronic hip and BLE pain for which he was given two PRN doses of dilaudid. Pt declined assistance with turns and bed bath. CARDIAC: sinus bradicardia. morning dose of metoprolol held RESPIRATORY: pt tolerating home dose of O2, 3L NC, well. lung sounds are course/dim. frequent, wet caugh. GI/: pt voiding clear, yellow urine in urinal. he tolerated his lunch well after the barium swallow study this AM. No BM SKIN: no new breakdown noted. PSYCH/SOCIAL: flat affect. several supportive family members at bedside to visit
--- NOTE | 2022-03-09 22:25 | NUR ---
PT DISCHARGED VIA EMS PER [facility]RA TRANSFER TO [facility] IN [place], [place]. TRANSPORTED WITH THE FOLLOWNIN) HEPARIN INFUSING AT 14 UNITS/KG/HOUR (WEIGHT OF 72KG) WHICH IS 20.2 mL PER HOUR. VERIFIED/CONFIRMED WITH EMS AND THIS RN. 2) SUPPLEMENTAL OXYGEN AT 3 LPM VIA NASAL CANNULA 3) TANSITIONED FROM HOSPITAL TELELMETRY DEVICE TO EMS MONITOR 4) PERSONAL BELONGINGS, INCLUDING CLOTHING, GLASSES WITH CASE, FULL SET OF DENTURES IN DENTURE CUP, CELL PHONE, CELL PHONE BASEBALL HAND SEWER AND CORD, FLORAL BAG, SENT WITH PATIENT. PATIENT NOTIFIED HIS SPOUSE OF THE PLANNED TRANSFER EARLIER THIS EVENING. DISCHARGE COMPLETED WITH NO ISSUES.
--- NOTE | 2022-03-09 23:20 | NUR ---
REPORT CALLED TO DORIS MCMANUS AT [facility].
== END 2022-03-09 22:24 | disposition short-term general hospital (02) | DRG 280 ==
LOC: ER 14:32 → ERHOLD 14:33 → ER 14:33 → ERHOLD 14:33 → ICUE 14:33 → ERHOLD 14:34 → ICUE 14:34 → ERHOLD 18:06 → ICUE 03-08 11:01 → PCU 03-09 15:07
PROVIDERS: Emergency Medicine; Family Medicine; Internal Medicine Cardiovascular Disease; ADMIT Internal Medicine
PROC: BD11YZZ Fluoroscopy of Esophagus using Other Contrast (ICD-10-PCS; principal; 2022-03-07)
PROC: 4A023N7 Measurement of Cardiac Sampling and Pressure, Left Heart, Percutaneous Approach (ICD-10-PCS; 2022-03-07)
PROC: B2111ZZ Fluoroscopy of Multiple Coronary Arteries using Low Osmolar Contrast (ICD-10-PCS; 2022-03-07)
DX: I11.0 Hypertensive heart disease with heart failure (principal); I21.4 Non-ST elevation (NSTEMI) myocardial infarction; I50.21 Acute systolic (congestive) heart failure; J96.01 Acute respiratory failure with hypoxia; J44.1 Chronic obstructive pulmonary disease with (acute) exacerbation; R64 Cachexia; R65.10 Systemic inflammatory response syndrome (SIRS) of non-infectious origin without acute organ dysfunction; E11.9 Type 2 diabetes mellitus without complications; D64.9 Anemia, unspecified; I48.91 Unspecified atrial fibrillation; I25.10 Atherosclerotic heart disease of native coronary artery without angina pectoris; F32.A Depression, unspecified; E78.5 Hyperlipidemia, unspecified; D50.9 Iron deficiency anemia, unspecified; K21.9 Gastro-esophageal reflux disease without esophagitis; E87.6 Hypokalemia; E83.42 Hypomagnesemia; Z85.118 Personal history of other malignant neoplasm of bronchus and lung; Z98.890 Other specified postprocedural states; Z85.01 Personal history of malignant neoplasm of esophagus; Z95.5 Presence of coronary angioplasty implant and graft; Z79.899 Other long term (current) drug therapy; Z88.8 Allergy status to other drugs, medicaments and biological substances; Z79.82 Long term (current) use of aspirin; Z87.891 Personal history of nicotine dependence; Z68.24 Body mass index [BMI] 24.0-24.9, adult
CPT/HCPCS: 0241U; 36415; 71045; 74230; 80048; 80053; 80061; 82803; 83605; 83735; 83880; 84145; 84484; 85025; 85027; 85520; 85610; 85730; 87040; 87070; 87106; 87205; 92526; 92610; 92611; 93005; 93010; 93458; 93880; 94640; 94660; 94664; 94760; 94762; 96365; 96366; 96368; 96375; 96376; 99152; 99285-25; A9270; C1751; C1769; C1894; C8929; J0456; J1170; J1644; J1650; J1940; J2060; J2250; J2405; J2543; J2765; J2930; J3010; J3475; J3480; J7030; J7050; Q9957; Q9967

== ENCOUNTER 2022-03-16 16:23 | Emergency (ER) | payer MEDICARE, OTHER ==
[~2022-03-16] VITALS: Ht 177.8 cm; Wt 72.6 kg
[~2022-03-16 16:23] MED LIST changes: +ALBU8HFA2 INH
[2022-03-16] MEDS ORDERED: ATOR40TA PO (17:01)
[2022-03-16] MEDS ORDERED: FURO40 PO (17:01)
[2022-03-16] MEDS ORDERED: ASPI81CH PO (17:01)
[2022-03-16] MEDS ORDERED: CARV6.25 PO (17:02)
[2022-03-16] MEDS ORDERED: ENTRESTO 24 MG1 EACH PO (17:02)
[2022-03-16] MEDS ORDERED: SPIR25 PO (17:02)
[2022-03-16] MEDS ORDERED: POTA10T PO (17:03)
[2022-03-16] MEDS ORDERED: PRED5 PO (17:05)
[2022-03-16] MEDS ORDERED: NEURONTIN300 MG PO (17:05)
[2022-03-16] MEDS ORDERED: ENDOCET 7.5-321 EACH PO (17:05)
[2022-03-16] MEDS ORDERED: MIRT30ST PO (17:06)
[2022-03-16 17:50] LABS: BASOPHILS ABSOLUTE AUTO 0.09 K/mm3 (0.00-0.23); BASOPHILS PERCENT AUTO 1 % (0-2); EOSINOPHILS ABSOLUTE AUTO 0.28 K/mm3 (0.00-0.68); EOSINOPHILS PERCENT AUTO 2 % (0-6); Hematocrit 39.3 % (37.0-53.0); Hemoglobin 11.9 g/dL (13.5-17.5); IMMATURE GRAN ABSOLUTE AUTO 0.07 K/mm3 (0.00-0.10); IMMATURE GRAN PERCENT AUTO 1 % (0-1); LYMPHOCYTES ABSOLUTE AUTO 1.82 K/mm3 (0.84-5.20); LYMPHOCYTES PERCENT AUTO 14 % (21-46); MONOCYTES ABSOLUTE AUTO 1.04 K/mm3 (0.16-1.47); MONOCYTES PERCENT AUTO 8 % (4-13); Mean Corpuscular HGB 25.9 pg (26.0-34.0); Mean Corpuscular HGB Conc 30.3 g/dL (31.5-36.5); Mean Corpuscular Volume 85 fL (80-100); NEUTROPHILS ABSOLUTE AUTO 10.01 K/mm3 (1.96-9.15); NEUTROPHILS PERCENT AUTO 75 % (41-73); NRBC ABSOLUTE 0.02 K/mm3 (0.00-0.02); NRBC Auto 0.2 /100 WBC (0.0-0.2); RDW Coefficient Variation 26.2 % (11.7-14.2); White Blood Cell Count 13.31 K/mm3 (4.00-11.30)
[2022-03-16 17:53] LABS: Mean Platelet Volume 11.3 fL (9.1-12.4); Platelet Count 307 K/mm3 (150-400)
[2022-03-16 18:02] LABS: Albumin, Blood 3.2 g/dL (3.4-5.0); Albumin/Globulin Ratio 0.7 (0.8-1.8); Bilirubin, Total 0.4 mg/dL (0.1-1.0); Bun/Creatinine Ratio 11.4 (12.0-20.0); Calcium, Blood 9.8 mg/dL (8.5-10.1); Creatinine, Blood 2.89 mg/dL (0.60-1.20); Globulin, Blood 4.5 g/dL (2.2-4.0); Magnesium, Blood 1.5 mg/dL (1.6-2.4); Potassium, Blood 4.3 mmol/L (3.5-5.5); Total Protein, Blood 7.7 g/dL (6.4-8.2)
== END 2022-03-16 19:52 | disposition home or self-care (01) ==
LOC: ER 16:23
PROVIDERS: Emergency Medicine
DX: N17.9 Acute kidney failure, unspecified (principal); E86.1 Hypovolemia; R35.89 Other polyuria; E11.9 Type 2 diabetes mellitus without complications; I25.10 Atherosclerotic heart disease of native coronary artery without angina pectoris; K21.9 Gastro-esophageal reflux disease without esophagitis; I11.0 Hypertensive heart disease with heart failure; I50.9 Heart failure, unspecified; J44.9 Chronic obstructive pulmonary disease, unspecified; Z88.8 Allergy status to other drugs, medicaments and biological substances; Z79.899 Other long term (current) drug therapy; Z79.82 Long term (current) use of aspirin; Z87.891 Personal history of nicotine dependence
CPT/HCPCS: 71045; 80053; 83735; 83880; 85025; 96360; 99285-25; J7030

== ENCOUNTER → 2022-07-18 | Outpatient (CLI) | payer MEDICARE, OTHER ==
[~2022-07-18] MED LIST changes: +ASPI81CH PO; +ATOR40TA PO; +CARV6.25 PO; +ENDOCET 7.5-321 EACH PO; +ENTRESTO 24 MG1 EACH PO; +FURO40 PO; +MIRT30ST PO; +POTA10T PO; +PRED5 PO; +SPIR25 PO
[2022-07-18 14:02] LABS: Source, Urine Clean Catch
[2022-07-18 14:19] LABS: BASOPHILS ABSOLUTE AUTO 0.05 K/mm3 (0.00-0.23); BASOPHILS PERCENT AUTO 1 % (0-2); EOSINOPHILS PERCENT AUTO 3 % (0-6); Hematocrit 32.1 % (37.0-53.0); IMMATURE GRAN ABSOLUTE AUTO 0.02 K/mm3 (0.00-0.10); IMMATURE GRAN PERCENT AUTO 0 % (0-1); LYMPHOCYTES ABSOLUTE AUTO 1.95 K/mm3 (0.84-5.20); LYMPHOCYTES PERCENT AUTO 25 % (21-46); MONOCYTES ABSOLUTE AUTO 0.62 K/mm3 (0.16-1.47); MONOCYTES PERCENT AUTO 8 % (4-13); Mean Corpuscular HGB 28.2 pg (26.0-34.0); Mean Corpuscular HGB Conc 31.2 g/dL (31.5-36.5); Mean Corpuscular Volume 90 fL (80-100); Mean Platelet Volume 10.7 fL (9.1-12.4); NEUTROPHILS PERCENT AUTO 63 % (41-73); Platelet Count 282 K/mm3 (150-400); RDW Standard Deviation 56.8 fL (35.1-46.3); Red Blood Cell Count 3.55 M/mm3 (4.30-5.90); White Blood Cell Count 7.74 K/mm3 (4.00-11.30)
[2022-07-18 14:29] LABS: Appearance, Urine Turbid (Clear); Bilirubin, Urine Neg (Neg); Blood, Urine Neg (Neg); Color, Urine Yellow (P-Yellow); Glucose Qualitative, Urine Neg (Neg); Ketones, Urine Neg (Neg); Leukocyte Esterase, Urine 1+ (Neg); Nitrite, Urine Pos (Neg); Protein, Urine Neg (Neg); Specific Gravity, Urine 1.015 (1.003-1.022); Urobilinogen, Urine NORM (Normal)
[2022-07-18 14:43] LABS: Albumin, Blood 2.3 g/dL (3.4-5.0); Albumin/Globulin Ratio 0.6 (0.8-1.8); Bilirubin, Total 0.2 mg/dL (0.1-1.0); Bun/Creatinine Ratio 12.6 (12.0-20.0); Calcium, Blood 8.5 mg/dL (8.5-10.1); Creatinine, Blood 0.8 mg/dL (0.60-1.20); Globulin, Blood 3.6 g/dL (2.2-4.0); Magnesium, Blood 1.6 mg/dL (1.6-2.4); Phosphorus, Blood 2.6 mg/dL (2.5-4.9); Potassium, Blood 3.8 mmol/L (3.5-5.5); Total Protein, Blood 5.9 g/dL (6.4-8.2)
[2022-07-18 15:17] LABS: Amorphous Heavy (0-Heavy)
[2022-07-18 15:18] LABS: Bacteria Many /hpf; Calcium Oxalate Crystals Rare /hpf; Red Blood Cells, Urine 0-2 /hpf (0-2); Squamous Epithelial Cells Not Seen /hpf (Few)
== END | disposition home or self-care (01) ==
LOC: LAB HH 12:40
PROVIDERS: Family Medicine
DX: I10 Essential (primary) hypertension (principal); J44.9 Chronic obstructive pulmonary disease, unspecified; E83.42 Hypomagnesemia; C34.92 Malignant neoplasm of unspecified part of left bronchus or lung; C15.9 Malignant neoplasm of esophagus, unspecified; Z79.899 Other long term (current) drug therapy; E11.9 Type 2 diabetes mellitus without complications
CPT/HCPCS: 80053; 81001; 82306; 82607; 83735; 84100; 85025; 87077; 87086; 87186

== ENCOUNTER → 2022-08-09 | Outpatient (CLI) | payer MEDICARE, OTHER ==
[2022-08-09 14:32] LABS: Source, Urine Clean Catch
[2022-08-09 17:43] LABS: Appearance, Urine Hazy (Clear); Bilirubin, Urine Neg (Neg); Blood, Urine 1+ (Neg); Color, Urine Yellow (P-Yellow); Glucose Qualitative, Urine Neg (Neg); Ketones, Urine Neg (Neg); Leukocyte Esterase, Urine 3+ (Neg); Nitrite, Urine Pos (Neg); Protein, Urine 2+ (Neg); Specific Gravity, Urine 1.015 (1.003-1.022); Urobilinogen, Urine NORM (Normal); pH, Urine 6.5 (5.0-8.0)
[2022-08-09 18:48] LABS: Amorphous Mod (0-Heavy); Bacteria Many /hpf; Calcium Oxalate Crystals Few /hpf; Mucus Light (0-Heavy); White Blood Cells, Urine TNTC /hpf (0-5)
[2022-08-09 18:49] LABS: Squamous Epithelial Cells Rare /hpf (Few)
== END | disposition home or self-care (01) ==
LOC: LAB SHORT 13:40 → LAB 13:40
PROVIDERS: Family Medicine
DX: N39.0 Urinary tract infection, site not specified (principal); R39.89 Other symptoms and signs involving the genitourinary system
CPT/HCPCS: 81001; 87077; 87086; 87186

== ENCOUNTER → 2023-01-08 | Outpatient (CLI) | payer MEDICARE, OTHER ==
[2023-01-08 12:52] LABS: Source, Urine Voided
[2023-01-08 14:31] LABS: Appearance, Urine Clear (Clear); Bilirubin, Urine Neg (Neg); Blood, Urine 2+ (Neg); Color, Urine Yellow (P-Yellow); Glucose Qualitative, Urine Neg (Neg); Ketones, Urine Neg (Neg); Leukocyte Esterase, Urine 1+ (Neg); Nitrite, Urine Pos (Neg); Protein, Urine 1+ (Neg); Specific Gravity, Urine 1.025 (1.003-1.022); Urobilinogen, Urine NORM (Normal)
[2023-01-08 15:23] LABS: Bacteria Many /hpf; Calcium Oxalate Crystals Mod /hpf; Squamous Epithelial Cells Rare /hpf (Few)
== END | disposition home or self-care (01) ==
LOC: LAB 12:50 → LAB SHORT 12:50
PROVIDERS: Family Medicine
DX: R30.0 Dysuria (principal)
CPT/HCPCS: 81001; 87077; 87086; 87186